=== PATIENT | female | born 1955 | race Caucasian/White ===

== ENCOUNTER 2021-12-15 14:15 | Inpatient (IN) ==
[2021-12-15] MEDS ORDERED: SODIUM CHLORIDE 0.9% 1,000 ML IV STA (16:26)
[2021-12-15 17:07] LABS: Basophils # 0.1 10*3/uL (0.0-0.2); Basophils % 0.4 % (0.0-0.8); Eosinophils # 0.1 10*3/uL (0.0-0.87); Eosinophils % 0.3 % (0.00-10.9); Hematocrit 46.1 VOL% (35.7-47.0); Hemoglobin 14.5 GM/DL (12.0-16.0); Immature Granulocytes % 0.6 %; Immature Granulocytes Absolute 0.12 #; Lymphocytes # 1.6 10*3/uL (1.4-4.0); Mean Corpuscular HGB Conc 31.5 GM/DL (32-36); Mean Corpuscular Volume 91.3 FL (87-102); Mean Platelet Volume 10.6 FL (9.6-12.0); Monocytes % 4.5 % (1.7-12.7); Neutrophils % 86.2 % (38.7-73.9); Platelet Count 316 T/CUMM (130-400); Red Blood Count 5.05 MC/CUMM (3.8-5.5); Red Cell Distribution Width 13.8 % (9.3-17.3); White Blood Count 19.5 T/CUMM (4-12)
[2021-12-15] MEDS ORDERED: ONDANSETRON 4 MG/2 ML VIAL IV STA (17:22)
[2021-12-15] MEDS ORDERED: ONDANSETRON 4 MG/2 ML VIAL ONE (17:22)
[2021-12-15] MEDS ORDERED: HYDROmorphone 1 MG/1 ML SYRINGE IV STA (17:22)
[2021-12-15] MEDS ORDERED: HYDROmorphone 1 MG/1 ML SYRINGE ONE (17:22)
[2021-12-15 17:28] LABS: Albumin 3.8 G/DL (3.4-5.0); Bilirubin,Total 0.6 MG/DL (0.20-1.00); Calcium 9.1 MG/DL (8.5-10.1); Potassium 3.5 MMOL/L (3.5-5.1); Total Protein 7.9 G/DL (6.4-8.2)
[2021-12-15] MEDS ORDERED: MIDAZOLAM 2 MG/2 ML VIAL ONE (19:10)
[2021-12-15] MEDS ORDERED: fentaNYL 250 MCG/5 ML VIAL ONE ×2 (19:10→19:48)
[2021-12-15] MEDS ORDERED: LIDOCAINE 2% 5 ML VIAL ONE (19:48)
[2021-12-15] MEDS ORDERED: SEVOFLURANE 1 UNIT/15 MINUTE INH ONE (19:48)
[2021-12-15] MEDS ORDERED: ETOMIDATE 40 MG/20 ML VIAL IV ONE (19:48)
[2021-12-15] MEDS ORDERED: ROCURONIUM 50 MG/5 ML VIAL IV ONE (19:48)
[2021-12-15] MEDS ORDERED: propofoL 200 MG/20 ML VIAL IV ONE (19:48)
[2021-12-15] MEDS ORDERED: ALBUTEROL 2.5 MG/3 ML NEB RESP TX ONE (20:19)
[2021-12-15] MEDS ORDERED: LACTATED RINGERS 1,000 ML IV ONE (20:31)
[2021-12-15] MEDS ORDERED: GLYCOPYRROLATE 0.4 MG/2 ML VIAL ONE (20:59)
[2021-12-15] MEDS ORDERED: NEOSTIGMINE 10 MG/10 ML VIAL ONE (20:59)
[2021-12-15] MEDS ORDERED: DEXAMETHASONE 4 MG/1 ML VIAL ONE (21:06)
[2021-12-15] MEDS ORDERED: ROPIVACAINE 0.5% 30 ML VIAL ONE ×2 (21:07)
[2021-12-15 21:09] LABS: Squamous Epithelial Cell,Urine Occasional /HPF (0-10)
[2021-12-15 21:10] LABS: Bilirubin,Urine Negative (Negative); Blood, Urine Negative (Negative); Glucose,Urine (UA) 100 mg/dL (Negative); Ketones,Urine Trace mg/dL (Negative); Nitrite,Urine Negative (Negative); Protein,Urine Negative (Negative); Urine Appearance Clear (Clear); Urine Color Yellow (Yellow); Urine Urobilinogen 0.2 eU/dL (<2.0); Urine pH 5.5 (4.5-8.0)
[2021-12-15] MEDS ORDERED: ONDANSETRON 4 MG/2 ML VIAL IV PRN ×2 (21:25→22:42)
[2021-12-15] MEDS ORDERED: ALBUTEROL/IPRATROPIUM 3 ML NEB RESP TX ONE (21:47)
[2021-12-15] MEDS ORDERED: ACETAMINOPHEN INJ 1,000 MG/100 ML VIAL IV ONE (22:00)
[2021-12-15] MEDS ORDERED: KETOROLAC 30 MG/1 ML VIAL ONE (22:00)
[2021-12-15] MEDS: HYDROmorphone 1 MG/1 ML SYRINGE IV PRN ×2 (22:06→22:40)
[2021-12-16] MEDS: MORPHINE 4 MG/1 ML VIAL IV PRN ×5 (00:14→22:05)
[2021-12-16] MEDS: DEXTROSE 5% LACTATED RINGERS 1,000 ML IV SCH ×4 (00:15→16:26)
[2021-12-16] MEDS: ALBUTEROL/IPRATROPIUM 3 ML NEB RESP TX SCH ×4 (04:29→19:39)
[2021-12-16 05:45] LABS: Basophils % 0.1 % (0.0-0.8); Hematocrit 36.4 VOL% (35.7-47.0); Hemoglobin 11.5 GM/DL (12.0-16.0); Immature Granulocytes % 0.4 %; Immature Granulocytes Absolute 0.06 #; Lymphocytes % 5.9 % (21.3-54.2); Mean Corpuscular HGB Conc 31.6 GM/DL (32-36); Mean Corpuscular Volume 92.9 FL (87-102); Mean Platelet Volume 11.3 FL (9.6-12.0); Monocytes % 3.4 % (1.7-12.7); Neutrophils % 90.2 % (38.7-73.9); Platelet Count 260 T/CUMM (130-400); Red Blood Count 3.92 MC/CUMM (3.8-5.5); Red Cell Distribution Width 14.1 % (9.3-17.3)
[2021-12-16 06:06] LABS: Albumin 2.6 G/DL (3.4-5.0); Bilirubin,Total 0.5 MG/DL (0.20-1.00); Calcium 8.1 MG/DL (8.5-10.1); Osmolality,Calculated 284.7 MOS/KG (273-304); Potassium 3.9 MMOL/L (3.5-5.1); Total Protein 6.1 G/DL (6.4-8.2)
[2021-12-16] MEDS ORDERED: PHENOL 1.4% THROAT SPRAY 177 ML BOTTLE PO PRN (07:13)
[2021-12-16] MEDS: PANTOPRAZOLE 40 MG VIAL IV SCH (09:29)
[2021-12-17] MEDS: DEXTROSE 5% LACTATED RINGERS 1,000 ML IV SCH ×2 (00:13→08:02)
[2021-12-17] MEDS: ALBUTEROL/IPRATROPIUM 3 ML NEB RESP TX SCH ×4 (01:53→19:24)
[2021-12-17] MEDS: MORPHINE 4 MG/1 ML VIAL IV PRN (03:20)
[2021-12-17 04:38] LABS: Basophils % 0.2 % (0.0-0.8); Eosinophils # 0.7 10*3/uL (0.0-0.87); Eosinophils % 3.9 % (0.00-10.9); Hematocrit 35.5 VOL% (35.7-47.0); Immature Granulocytes % 0.5 %; Immature Granulocytes Absolute 0.09 #; Lymphocytes # 1.9 10*3/uL (1.4-4.0); Lymphocytes % 11.1 % (21.3-54.2); Mean Corpuscular Volume 93.2 FL (87-102); Mean Platelet Volume 10.8 FL (9.6-12.0); Monocytes % 4.1 % (1.7-12.7); Neutrophils % 80.2 % (38.7-73.9); Platelet Count 231 T/CUMM (130-400); Red Blood Count 3.81 MC/CUMM (3.8-5.5); Red Cell Distribution Width 14.1 % (9.3-17.3); White Blood Count 17.4 T/CUMM (4-12)
[2021-12-17 05:07] LABS: Albumin 2.3 G/DL (3.4-5.0); Bilirubin,Total 0.9 MG/DL (0.20-1.00); Calcium 7.8 MG/DL (8.5-10.1); Osmolality,Calculated 283.3 MOS/KG (273-304); Potassium 3.2 MMOL/L (3.5-5.1); Total Protein 6.2 G/DL (6.4-8.2)
[2021-12-17] MEDS ORDERED: NALOXONE 0.4 MG/ML VIAL ONE (07:06)
[2021-12-17] MEDS ORDERED: ETOMIDATE 20 MG/10 ML VIAL IV ONE ×2 (07:10→07:15)
[2021-12-17] MEDS ORDERED: SUCCINYLCHOLINE 200 MG/10 ML VIAL ONE (07:11)
[2021-12-17] MEDS ORDERED: ROCURONIUM 100 MG/10 ML VIAL IV ONE ×2 (07:14→07:15)
[2021-12-17] MEDS ORDERED: FUROSEMIDE 20 MG/2 ML VIAL IV ONE (07:28)
[2021-12-17] MEDS ORDERED: LABETALOL 20 MG/4 ML SYRINGE IV ONE (07:52)
[2021-12-17] MEDS: PANTOPRAZOLE 40 MG VIAL IV SCH (08:05)
[2021-12-17 08:26] LABS: Arterial Base Excess iSTAT 0 MMOL/L (-2.5-2.5); Arterial Bicarbonate iSTAT 25.8 MMOL/L (20-26); Arterial O2 Saturation iSTAT 99 % (95-100); Arterial PCO2 iSTAT 46 MM HG (35-48); Arterial PO2 iSTAT 145 MM HG (80-95); Arterial Total CO2 iSTAT 27 MMO/L (23-27); Arterial pH iSTAT 7.359 (7.35-7.45)
[2021-12-17 09:52] LABS: Arterial Base Excess iSTAT 1 MMOL/L (-2.5-2.5); Arterial Bicarbonate iSTAT 25.9 MMOL/L (20-26); Arterial O2 Saturation iSTAT 100 % (95-100); Arterial PCO2 iSTAT 41 MM HG (35-48); Arterial PO2 iSTAT 240 MM HG (80-95); Arterial Total CO2 iSTAT 27 MMO/L (23-27); Arterial pH iSTAT 7.412 (7.35-7.45)
[2021-12-17] MEDS ORDERED: MIDAZOLAM 100 MG in SODIUM CHLORIDE 0.9% 80 ML IV SCH ×2 (10:00→10:30)
[2021-12-17] MEDS: MIDAZOLAM 100 MG in SODIUM CHLORIDE 0.9% 80 ML IV PRN (10:52)
[2021-12-17] MEDS ORDERED: LACTATED RINGERS 500 ML IV ONE (11:25)
[2021-12-17] MEDS: MORPHINE 2 MG/1 ML SYRINGE IV PRN (13:10)
[2021-12-18] MEDS: ALBUTEROL/IPRATROPIUM 3 ML NEB RESP TX SCH ×4 (00:50→19:21)
[2021-12-18] MEDS: MORPHINE 2 MG/1 ML SYRINGE IV PRN ×3 (02:26→21:18)
[2021-12-18 03:30] LABS: Basophils # 0.1 10*3/uL (0.0-0.2); Basophils % 0.4 % (0.0-0.8); Eosinophils # 0.8 10*3/uL (0.0-0.87); Hematocrit 32.4 VOL% (35.7-47.0); Immature Granulocytes % 0.6 %; Immature Granulocytes Absolute 0.08 #; Lymphocytes # 1.8 10*3/uL (1.4-4.0); Lymphocytes % 13.1 % (21.3-54.2); Mean Corpuscular HGB Conc 30.9 GM/DL (32-36); Mean Corpuscular Volume 90.3 FL (87-102); Mean Platelet Volume 10.1 FL (9.6-12.0); Monocytes % 3.8 % (1.7-12.7); Neutrophils % 76.1 % (38.7-73.9); Platelet Count 223 T/CUMM (130-400); Red Blood Count 3.59 MC/CUMM (3.8-5.5); Red Cell Distribution Width 13.9 % (9.3-17.3)
[2021-12-18 03:50] LABS: Albumin 1.9 G/DL (3.4-5.0); Bilirubin,Total 1.5 MG/DL (0.20-1.00); Osmolality,Calculated 286.1 MOS/KG (273-304); Potassium 3.3 MMOL/L (3.5-5.1); Total Protein 5.9 G/DL (6.4-8.2)
[2021-12-18 04:43] LABS: Arterial Base Excess iSTAT 4 MMOL/L (-2.5-2.5); Arterial Bicarbonate iSTAT 28.5 MMOL/L (20-26); Arterial O2 Saturation iSTAT 99 % (95-100); Arterial PCO2 iSTAT 41 MM HG (35-48); Arterial PO2 iSTAT 120 MM HG (80-95); Arterial Total CO2 iSTAT 30 MMO/L (23-27); Arterial pH iSTAT 7.456 (7.35-7.45)
[2021-12-18] MEDS: MIDAZOLAM 100 MG in SODIUM CHLORIDE 0.9% 80 ML IV PRN (06:31)
[2021-12-18] MEDS: PANTOPRAZOLE 40 MG VIAL IV SCH (08:23)
[2021-12-18] MEDS ORDERED: DEXMEDETOMIDINE 200 MCG in SODIUM CHLORIDE 0.9% 48 ML IV PRN (09:40)
[2021-12-18 12:14] LABS: Arterial Base Excess iSTAT 4 MMOL/L (-2.5-2.5); Arterial O2 Saturation iSTAT 97 % (95-100); Arterial PCO2 iSTAT 41 MM HG (35-48); Arterial PO2 iSTAT 87 MM HG (80-95); Arterial Total CO2 iSTAT 29 MMO/L (23-27)
[2021-12-18] MEDS ORDERED: DEXMEDETOMIDINE 400 MCG in SODIUM CHLORIDE 0.9% 96 ML IV PRN (13:30)
[2021-12-18] MEDS ORDERED: FUROSEMIDE 20 MG/2 ML VIAL IV ONE (15:38)
[2021-12-18 15:58] LABS: Arterial Base Excess iSTAT 4 MMOL/L (-2.5-2.5); Arterial Bicarbonate iSTAT 28.1 MMOL/L (20-26); Arterial O2 Saturation iSTAT 90 % (95-100); Arterial PCO2 iSTAT 41 MM HG (35-48); Arterial PO2 iSTAT 56 MM HG (80-95); Arterial Total CO2 iSTAT 29 MMO/L (23-27); Arterial pH iSTAT 7.441 (7.35-7.45)
[2021-12-18 18:10] LABS: Arterial Base Excess iSTAT 6 MMOL/L (-2.5-2.5); Arterial Bicarbonate iSTAT 30.5 MMOL/L (20-26); Arterial O2 Saturation iSTAT 98 % (95-100); Arterial PCO2 iSTAT 42 MM HG (35-48); Arterial PO2 iSTAT 101 MM HG (80-95); Arterial Total CO2 iSTAT 32 MMO/L (23-27); Arterial pH iSTAT 7.471 (7.35-7.45)
[2021-12-19] MEDS: ALBUTEROL/IPRATROPIUM 3 ML NEB RESP TX SCH ×4 (00:20→19:06)
[2021-12-19] MEDS: MORPHINE 2 MG/1 ML SYRINGE IV PRN ×4 (00:57→16:31)
[2021-12-19 03:23] LABS: Basophils % 0.3 % (0.0-0.8); Eosinophils # 0.5 10*3/uL (0.0-0.87); Eosinophils % 3.3 % (0.00-10.9); Hemoglobin 10.9 GM/DL (12.0-16.0); Immature Granulocytes % 0.5 %; Immature Granulocytes Absolute 0.07 #; Lymphocytes # 1.7 10*3/uL (1.4-4.0); Mean Corpuscular HGB Conc 31.1 GM/DL (32-36); Mean Corpuscular Volume 91.6 FL (87-102); Mean Platelet Volume 10.6 FL (9.6-12.0); Monocytes % 5.5 % (1.7-12.7); Neutrophils % 78.4 % (38.7-73.9); Platelet Count 277 T/CUMM (130-400); Red Blood Count 3.82 MC/CUMM (3.8-5.5); Red Cell Distribution Width 13.7 % (9.3-17.3); White Blood Count 14.1 T/CUMM (4-12)
[2021-12-19 03:42] LABS: Bilirubin,Total 1.9 MG/DL (0.20-1.00); Calcium 8.2 MG/DL (8.5-10.1); Total Protein 6.6 G/DL (6.4-8.2)
[2021-12-19] MEDS: POTASSIUM CHLORIDE RIDER 10 MEQ/100 ML PREMIX IV PRN ×8 (04:07→14:55)
[2021-12-19 05:01] LABS: Arterial Base Excess iSTAT 4 MMOL/L (-2.5-2.5); Arterial Bicarbonate iSTAT 28.2 MMOL/L (20-26); Arterial O2 Saturation iSTAT 95 % (95-100); Arterial PCO2 iSTAT 42 MM HG (35-48); Arterial PO2 iSTAT 73 MM HG (80-95); Arterial Total CO2 iSTAT 29 MMO/L (23-27); Arterial pH iSTAT 7.435 (7.35-7.45)
[2021-12-19] MEDS: NICOTINE 21 MG/24 HR PATCH TRANSDERM SCH (09:01)
[2021-12-19] MEDS: PANTOPRAZOLE 40 MG VIAL IV SCH (09:01)
[2021-12-19] MEDS: PIPERACILLIN/TAZOBACTAM 3,375 MG in SODIUM CHLORIDE 0.9% 100 ML IV SCH ×2 (09:04→17:03)
[2021-12-19 09:12] LABS: Bilirubin,Direct 1.08 MG/DL (0.0-0.20); Bilirubin,Indirect 0.5 MG/DL (0.0-1.0); Bilirubin,Total 1.6 MG/DL (0.20-1.00)
[2021-12-19] MEDS: HYDROCORTISONE 100 MG VIAL IV SCH (10:58)
[2021-12-19] MEDS: FUROSEMIDE 40 MG/4 ML VIAL IV SCH (11:15)
[2021-12-19] MEDS: ENOXAPARIN 40 MG/0.4 ML SYRINGE SUBCUT SCH (12:57)
[2021-12-19] MEDS ORDERED: DEXTROSE 10% 250 ML BAG IV PRN (14:13)
[2021-12-19] MEDS ORDERED: GLUCAGON 1 MG VIAL IM PRN (14:13)
[2021-12-19] MEDS ORDERED: DEXTROSE 10% 1,000 ML IV PRN (17:00)
[2021-12-19] MEDS: ELECTROLYTE IV SCH (17:02)
[2021-12-19] MEDS: MULTIVITAMIN IV SCH (17:02)
[2021-12-19] MEDS: [UNRECOGNIZED DRUG - OTHER] IV SCH (17:02)
[2021-12-20] MEDS: ALBUTEROL/IPRATROPIUM 3 ML NEB RESP TX SCH ×4 (00:11→19:30)
[2021-12-20] MEDS: HYDROCORTISONE 100 MG VIAL IV SCH (00:12)
[2021-12-20] MEDS: PIPERACILLIN/TAZOBACTAM 3,375 MG in SODIUM CHLORIDE 0.9% 100 ML IV SCH ×3 (00:13→17:15)
[2021-12-20] MEDS: MORPHINE 2 MG/1 ML SYRINGE IV PRN ×3 (00:45→22:04)
[2021-12-20 04:03] LABS: Basophils # 0.1 10*3/uL (0.0-0.2); Basophils % 0.3 % (0.0-0.8); Eosinophils % 0.2 % (0.00-10.9); Hematocrit 32.8 VOL% (35.7-47.0); Hemoglobin 10.4 GM/DL (12.0-16.0); Immature Granulocytes % 0.5 %; Immature Granulocytes Absolute 0.08 #; Lymphocytes # 0.9 10*3/uL (1.4-4.0); Lymphocytes % 5.6 % (21.3-54.2); Mean Corpuscular HGB Conc 31.7 GM/DL (32-36); Mean Corpuscular Volume 89.1 FL (87-102); Mean Platelet Volume 9.9 FL (9.6-12.0); Neutrophils % 89.4 % (38.7-73.9); Platelet Count 310 T/CUMM (130-400); Red Blood Count 3.68 MC/CUMM (3.8-5.5); Red Cell Distribution Width 13.5 % (9.3-17.3); White Blood Count 16.7 T/CUMM (4-12)
[2021-12-20 04:18] LABS: Bilirubin,Total 1.4 MG/DL (0.20-1.00); Calcium 8.7 MG/DL (8.5-10.1); Osmolality,Calculated 292.3 MOS/KG (273-304); Potassium 3.4 MMOL/L (3.5-5.1); Total Protein 6.8 G/DL (6.4-8.2)
[2021-12-20 04:20] LABS: Arterial Base Excess iSTAT 5 MMOL/L (-2.5-2.5); Arterial Bicarbonate iSTAT 29.9 MMOL/L (20-26); Arterial O2 Saturation iSTAT 96 % (95-100); Arterial PCO2 iSTAT 44 MM HG (35-48); Arterial PO2 iSTAT 82 MM HG (80-95); Arterial Total CO2 iSTAT 31 MMO/L (23-27); Arterial pH iSTAT 7.438 (7.35-7.45)
[2021-12-20] MEDS: FUROSEMIDE 40 MG/4 ML VIAL IV SCH (08:16)
[2021-12-20] MEDS: NICOTINE 21 MG/24 HR PATCH TRANSDERM SCH (08:16)
[2021-12-20] MEDS: PANTOPRAZOLE 40 MG VIAL IV SCH (08:17)
[2021-12-20] MEDS ORDERED: BUPIVACAINE MPF 0.25% 30 ML VIAL ONE (08:26)
[2021-12-20] MEDS ORDERED: LIDOCAINE 1%/EPI INJ 20 ML VIAL ONE (08:27)
[2021-12-20] MEDS ORDERED: LIDOCAINE 2% 5 ML VIAL ONE (08:39)
[2021-12-20] MEDS ORDERED: propofoL 200 MG/20 ML VIAL IV ONE (08:39)
[2021-12-20] MEDS ORDERED: KETAMINE 500 MG/10 ML VIAL ONE (08:40)
[2021-12-20] MEDS ORDERED: GLYCOPYRROLATE 0.4 MG/2 ML VIAL ONE (08:40)
[2021-12-20] MEDS ORDERED: fentaNYL 100 MCG/2 ML VIAL ONE (08:55)
[2021-12-20] MEDS: POTASSIUM CHLORIDE RIDER 10 MEQ/100 ML PREMIX IV PRN ×3 (10:15→12:15)
[2021-12-20] MEDS: ENOXAPARIN 40 MG/0.4 ML SYRINGE SUBCUT SCH (12:50)
[2021-12-20] MEDS: [UNRECOGNIZED DRUG - OTHER] IV SCH (17:18)
[2021-12-20] MEDS: ELECTROLYTE IV SCH (17:18)
[2021-12-20] MEDS: MULTIVITAMIN IV SCH (17:18)
[2021-12-21] MEDS: ALBUTEROL/IPRATROPIUM 3 ML NEB RESP TX SCH ×4 (01:01→18:10)
[2021-12-21] MEDS: PIPERACILLIN/TAZOBACTAM 3,375 MG in SODIUM CHLORIDE 0.9% 100 ML IV SCH ×3 (01:54→17:30)
[2021-12-21 04:02] LABS: Basophils # 0.1 10*3/uL (0.0-0.2); Basophils % 0.5 % (0.0-0.8); Eosinophils # 0.8 10*3/uL (0.0-0.87); Eosinophils % 5.7 % (0.00-10.9); Hematocrit 34.9 VOL% (35.7-47.0); Hemoglobin 11.1 GM/DL (12.0-16.0); Immature Granulocytes % 0.5 %; Immature Granulocytes Absolute 0.08 #; Lymphocytes % 13.4 % (21.3-54.2); Mean Corpuscular HGB Conc 31.8 GM/DL (32-36); Mean Corpuscular Volume 88.8 FL (87-102); Mean Platelet Volume 10.3 FL (9.6-12.0); Monocytes % 5.3 % (1.7-12.7); Neutrophils % 74.6 % (38.7-73.9); Platelet Count 318 T/CUMM (130-400); Red Blood Count 3.93 MC/CUMM (3.8-5.5); Red Cell Distribution Width 13.4 % (9.3-17.3); White Blood Count 14.8 T/CUMM (4-12)
[2021-12-21 04:21] LABS: Albumin 1.8 G/DL (3.4-5.0); Bilirubin,Total 0.8 MG/DL (0.20-1.00); Calcium 8.5 MG/DL (8.5-10.1); Osmolality,Calculated 284.5 MOS/KG (273-304); Potassium 3.1 MMOL/L (3.5-5.1); Total Protein 6.9 G/DL (6.4-8.2)
[2021-12-21 04:22] LABS: VLDL Cholesterol 29.6 MG/DL
[2021-12-21] MEDS: POTASSIUM CHLORIDE RIDER 10 MEQ/100 ML PREMIX IV PRN ×4 (06:00→10:11)
[2021-12-21] MEDS: NICOTINE 21 MG/24 HR PATCH TRANSDERM SCH (08:04)
[2021-12-21] MEDS: PANTOPRAZOLE 40 MG VIAL IV SCH (08:04)
[2021-12-21] MEDS ORDERED: FUROSEMIDE 20 MG/2 ML VIAL IV ONE (08:42)
[2021-12-21] MEDS: ENOXAPARIN 40 MG/0.4 ML SYRINGE SUBCUT SCH (13:17)
[2021-12-21] MEDS: ELECTROLYTE IV SCH (17:30)
[2021-12-21] MEDS: MULTIVITAMIN IV SCH (17:30)
[2021-12-21] MEDS: [UNRECOGNIZED DRUG - OTHER] IV SCH (17:30)
[2021-12-22] MEDS: ALBUTEROL/IPRATROPIUM 3 ML NEB RESP TX SCH ×4 (00:45→19:26)
[2021-12-22] MEDS: PIPERACILLIN/TAZOBACTAM 3,375 MG in SODIUM CHLORIDE 0.9% 100 ML IV SCH ×3 (01:11→17:19)
[2021-12-22 03:59] LABS: Basophils # 0.1 10*3/uL (0.0-0.2); Basophils % 0.6 % (0.0-0.8); Eosinophils # 0.9 10*3/uL (0.0-0.87); Eosinophils % 7.2 % (0.00-10.9); Hematocrit 34.8 VOL% (35.7-47.0); Hemoglobin 10.8 GM/DL (12.0-16.0); Immature Granulocytes % 1.5 %; Immature Granulocytes Absolute 0.18 #; Lymphocytes # 3.3 10*3/uL (1.4-4.0); Lymphocytes % 27.1 % (21.3-54.2); Mean Corpuscular Volume 89.9 FL (87-102); Mean Platelet Volume 10.3 FL (9.6-12.0); Monocytes % 4.8 % (1.7-12.7); Neutrophils % 58.8 % (38.7-73.9); Platelet Count 335 T/CUMM (130-400); Red Blood Count 3.87 MC/CUMM (3.8-5.5); Red Cell Distribution Width 13.8 % (9.3-17.3)
[2021-12-22 04:14] LABS: Calcium 8.2 MG/DL (8.5-10.1); Osmolality,Calculated 281.4 MOS/KG (273-304)
[2021-12-22] MEDS: POTASSIUM CHLORIDE RIDER 10 MEQ/100 ML PREMIX IV PRN ×5 (07:50→17:19)
[2021-12-22] MEDS: amLODIPine 10 MG TABLET PO SCH (08:58)
[2021-12-22] MEDS: PARoxetine 20 MG TABLET PO SCH (08:58)
[2021-12-22] MEDS: PANTOPRAZOLE 40 MG VIAL IV SCH (08:59)
[2021-12-22] MEDS: NICOTINE 21 MG/24 HR PATCH TRANSDERM SCH (09:04)
[2021-12-22] MEDS: ENOXAPARIN 40 MG/0.4 ML SYRINGE SUBCUT SCH (13:06)
[2021-12-23] MEDS: ALBUTEROL/IPRATROPIUM 3 ML NEB RESP TX SCH ×3 (00:19→13:26)
[2021-12-23] MEDS: PIPERACILLIN/TAZOBACTAM 3,375 MG in SODIUM CHLORIDE 0.9% 100 ML IV SCH ×2 (01:01→09:13)
[2021-12-23 05:30] LABS: Basophils # 0.1 10*3/uL (0.0-0.2); Basophils % 0.7 % (0.0-0.8); Eosinophils # 0.8 10*3/uL (0.0-0.87); Eosinophils % 5.9 % (0.00-10.9); Hematocrit 33.8 VOL% (35.7-47.0); Hemoglobin 10.6 GM/DL (12.0-16.0); Immature Granulocytes % 2.1 %; Immature Granulocytes Absolute 0.27 #; Lymphocytes # 2.8 10*3/uL (1.4-4.0); Lymphocytes % 20.9 % (21.3-54.2); Mean Corpuscular HGB Conc 31.4 GM/DL (32-36); Mean Corpuscular Volume 89.2 FL (87-102); Mean Platelet Volume 10.5 FL (9.6-12.0); Monocytes % 5.2 % (1.7-12.7); NRBC # 0.02 10*3/uL; Neutrophils % 65.2 % (38.7-73.9); Platelet Count 397 T/CUMM (130-400); Red Blood Count 3.79 MC/CUMM (3.8-5.5); Red Cell Distribution Width 13.7 % (9.3-17.3); White Blood Count 13.2 T/CUMM (4-12)
[2021-12-23 05:42] LABS: Calcium 7.9 MG/DL (8.5-10.1); Osmolality,Calculated 278.5 MOS/KG (273-304); Potassium 3.6 MMOL/L (3.5-5.1)
[2021-12-23] MEDS: PARoxetine 20 MG TABLET PO SCH (09:12)
[2021-12-23] MEDS: amLODIPine 10 MG TABLET PO SCH (09:12)
[2021-12-23] MEDS: PANTOPRAZOLE 40 MG VIAL IV SCH (09:12)
[2021-12-23] MEDS: NICOTINE 21 MG/24 HR PATCH TRANSDERM SCH (09:13)
[2021-12-23] MEDS: ENOXAPARIN 40 MG/0.4 ML SYRINGE SUBCUT SCH (12:19)
[2021-12-23 15:56] VITALS: BP 121/35
== END 2021-12-23 16:10 | disposition home health service (06) | DRG 326 ==
LOC: N.ED 14:15 → N.3E 17:34 → N.ED 19:05 → N.3E 21:23 → N.ICU 12-17 07:09 → N.3E 12-22 16:04 → N.ICU 12-22 17:03 → N.3E 12-22 19:13
PROVIDERS: ADMIT Surgery; ATTEND Surgery